=== PATIENT | male | born 1970 | race Caucasian/White ===

== ENCOUNTER 2020-10-18 12:00 | Inpatient (IN) ==
[2020-10-18 13:24] LABS: Bilirubin,Urine Small (Negative); Blood,Urine Large (Negative); Clarity,Urine Ex.Turbid (Clear); Color,Urine Orange (Yellow); Glucose,Urine (UA) Normal (Normal); Ketones,Urine Negative (Negative); Leukocyte Esterase,Urine Trace (Negative); Nitrite,Urine Negative (Negative); PH,Urine 5.5 pH Units (5.0-8.0); Protein,Urine 100 mg/dL (Neg-Trace); Specific Gravity,Urine 1.029 (1.010-1.025); WBC,Urine TNTC per hpf (0-3)
[2020-10-18 13:25] LABS: Squamous Epithelial Cell,Urine Present per hpf (None-Few); Transitional Epi Cells,Urine Present per hpf (None-Few)
[2020-10-18 13:26] LABS: Renal Epithelial Cells,Urine Present per hpf (None-Few)
[2020-10-18] MEDS ORDERED: cefTRIAXone 1,000 MG in Water for inj. (sterile) 10 ML IVP ONE (13:32)
[2020-10-18] MEDS ORDERED: Ketorolac 15 MG/ML VIAL IVP ONE (13:34)
[2020-10-18 13:55] LABS: Basophils % 0.3 %; Hematocrit 34.7 % (37.5-50.1); Hemoglobin 11.3 g/dL (12.9-16.9); Immature Granulocytes % 0.6 % (0-4); Lymphocytes # 0.8 K/mcL (0.6-4.6); Lymphocytes % 7.5 %; Mean Corpuscular HGB Conc 32.6 g/dL (31.6-35.5); Mean Corpuscular Hemoglobin 26.8 pg (28.0-33.3); Mean Corpuscular Volume 82.2 fL (83.0-100.0); Mean Platelet Volume 10.2 fL (9.4-12.4); Monocytes # 0.6 K/mcL (0.0-1.3); Monocytes % 5.9 %; Neutrophils # 8.9 K/mcL (1.6-8.9); Platelet Count 116 K/mcL (140-400); Red Blood Count 4.22 M/mcL (4.19-5.50); Red Cell Distribution Width 12.5 % (11.5-14.5); Segmented Neutrophils % 85.7 %; White Blood Count 10.4 K/mcL (4.3-11.1)
[2020-10-18 16:05] LABS: Albumin 3.5 g/dL (3.5-5.7); Albumin/Globulin Ratio 1.3 (1.1-2.2); Bilirubin,Direct 0.1 mg/dL (0.0-0.2); Bilirubin,Indirect 0.7 mg/dL (0.0-1.0); Bilirubin,Total 0.8 mg/dL (0.3-1.0); Calcium 8.5 mg/dL (8.6-10.3); Globulin 2.7 g/dL (2.4-3.5); Potassium 3.3 mEq/L (3.5-5.1); Total Protein 6.2 g/dL (6.4-8.9)
[2020-10-18] MEDS ORDERED: 0.9 % Sodium Chloride 1,000 ML IVC ONE ×2 (16:28→16:47)
[2020-10-18] MEDS ORDERED: Ondansetron 4 MG/2 ML VIAL IVP PRN (16:45)
[2020-10-18] MEDS ORDERED: Naloxone 0.4 MG/ML INJ IVP PRN (16:45)
[2020-10-18] MEDS ORDERED: *HR* OxyCODONE/APAP 5/325 TABLET PO PRN (16:47)
[2020-10-18] MEDS ORDERED: Melatonin 3 MG TABLET PO PRN (18:05)
[2020-10-18] MEDS ORDERED: traZODone 50 MG TABLET PO SCH (21:00)
[2020-10-18] MEDS: 0.9 % Sodium Chloride 1,000 ML IVC SCH (21:02)
[2020-10-18] MEDS: Acetaminophen 325 MG TABLET PO PRN (21:09)
[2020-10-18] MEDS: *HR* Heparin 5,000 UNIT/ML VIAL SQ SCH (21:10)
[2020-10-19] MEDS: Cefepime HCl 2,000 MG in Water for inj. (sterile) 20 ML IVP SCH ×3 (00:30→18:31)
[2020-10-19] MEDS: 0.9 % Sodium Chloride 1,000 ML IVC SCH (00:30)
[2020-10-19] MEDS: *HR* Heparin 5,000 UNIT/ML VIAL SQ SCH ×2 (05:25→18:30)
[2020-10-19] MEDS: Nicotine 14 MG PATCH.TD24 TD SCH ×2 (05:25→10:26)
[2020-10-19 07:07] LABS: Acinetobacter baumannii by PCR Not Detected (Not Detect); Candida albicans by PCR Not Detected (Not Detect); Candida glabrata by PCR Not Detected (Not Detect); Candida krusei by PCR Not Detected (Not Detect); Candida parapsilosis by PCR Not Detected (Not Detect); Candida tropicalis by PCR Not Detected (Not Detect); Enterobacter cloacae Cmplx PCR Not Detected (Not Detect); Enterococcus by PCR Not Detected (Not Detect); Escherichia coli by PCR DETECTED (Not Detect); Klebsiella oxytoca by PCR Not Detected (Not Detect); Klebsiella pneumoniae by PCR Not Detected (Not Detect); Proteus by PCR Not Detected (Not Detect); Pseudomonas aeruginosa by PCR Not Detected (Not Detect); Serratia marcescens by PCR Not Detected (Not Detect); Staphylococcus aureus by PCR Not Detected (Not Detect); Staphylococcus by PCR Not Detected (Not Detect); Streptococcus agalactiae(B)PCR Not Detected (Not Detect); Streptococcus by PCR Not Detected (Not Detect); Streptococcus pneumoniae PCR Not Detected (Not Detect); Streptococcus pyogenes (A) PCR Not Detected (Not Detect)
[2020-10-19 07:48] LABS: Basophils % 0.3 %; Eosinophils # 0.1 K/mcL (0.0-0.6); Eosinophils % 1.4 %; Hematocrit 33.6 % (37.5-50.1); Immature Granulocytes % 0.5 % (0-4); Lymphocytes # 0.8 K/mcL (0.6-4.6); Lymphocytes % 11.6 %; Mean Corpuscular HGB Conc 32.7 g/dL (31.6-35.5); Mean Corpuscular Hemoglobin 27.2 pg (28.0-33.3); Mean Platelet Volume 10.5 fL (9.4-12.4); Monocytes # 0.4 K/mcL (0.0-1.3); Monocytes % 6.7 %; Neutrophils # 5.1 K/mcL (1.6-8.9); Platelet Count 108 K/mcL (140-400); Red Blood Count 4.05 M/mcL (4.19-5.50); Red Cell Distribution Width 12.7 % (11.5-14.5); Segmented Neutrophils % 79.5 %; White Blood Count 6.5 K/mcL (4.3-11.1)
[2020-10-19 08:13] LABS: BUN/Creatinine Ratio 20 (6-26); Blood Urea Nitrogen 26 mg/dL (6-20); Calcium 8.6 mg/dL (8.6-10.3); Carbon Dioxide 27 mEq/L (23-29); Chloride 101 mEq/L (98-107); Glucose 122 mg/dL (70-105); Magnesium 1.8 mg/dL (1.6-2.6); Osmolality,Calculated 282 (280-300); Phosphorous 2.2 mg/dL (2.7-4.5); Potassium 3.9 mEq/L (3.5-5.1); Sodium 133 mEq/L (136-145); eGFR For African Americans > 60 (> 60); eGFR For Non-African Americans 58 (> 60)
[2020-10-19] MEDS: polyethylene glycoL 3350 17 GM POWD.PACK PO SCH (11:03)
[2020-10-19] MEDS ORDERED: Nicotine 14 MG PATCH.TD24 TD ONE (15:06)
[2020-10-19] MEDS: Acetaminophen 325 MG TABLET PO PRN (15:41)
[2020-10-19] MEDS: hydrOXYzine pamoate 25 MG CAPSULE PO SCH (19:53)
[2020-10-19] MEDS ORDERED: traZODone 50 MG TABLET PO SCH (21:00)
[2020-10-20] MEDS: Cefepime HCl 2,000 MG in Water for inj. (sterile) 20 ML IVP SCH ×2 (00:30→09:35)
[2020-10-20] MEDS: *HR* Heparin 5,000 UNIT/ML VIAL SQ SCH (05:58)
[2020-10-20] MEDS ORDERED: Naltrexone HCl 50 MG TABLET PO SCH (09:00)
[2020-10-20] MEDS: hydrOXYzine pamoate 25 MG CAPSULE PO SCH (09:37)
[2020-10-20] MEDS: Nicotine 14 MG PATCH.TD24 TD SCH (09:37)
[2020-10-20] MEDS: polyethylene glycoL 3350 17 GM POWD.PACK PO SCH (09:37)
[2020-10-20 09:48] LABS: Basophils % 0.6 %; Eosinophils # 0.2 K/mcL (0.0-0.6); Eosinophils % 3.1 %; Hemoglobin 11.5 g/dL (12.9-16.9); Immature Granulocytes % 0.4 % (0-4); Lymphocytes % 19.8 %; Mean Corpuscular HGB Conc 31.9 g/dL (31.6-35.5); Mean Corpuscular Hemoglobin 26.3 pg (28.0-33.3); Mean Corpuscular Volume 82.2 fL (83.0-100.0); Monocytes # 0.4 K/mcL (0.0-1.3); Monocytes % 8.6 %; Neutrophils # 3.2 K/mcL (1.6-8.9); Platelet Count 170 K/mcL (140-400); Red Blood Count 4.38 M/mcL (4.19-5.50); Red Cell Distribution Width 12.6 % (11.5-14.5); Segmented Neutrophils % 67.5 %; White Blood Count 4.8 K/mcL (4.3-11.1)
[2020-10-20] MEDS ORDERED: cloNIDine HCL 0.1 MG TABLET PO SCH (10:00)
[2020-10-20 10:06] LABS: BUN/Creatinine Ratio 17 (6-26); Blood Urea Nitrogen 16 mg/dL (6-20); Calcium 9.3 mg/dL (8.6-10.3); Carbon Dioxide 25 mEq/L (23-29); Chloride 102 mEq/L (98-107); Glucose 189 mg/dL (70-105); Osmolality,Calculated 286 (280-300); Potassium 3.8 mEq/L (3.5-5.1); Sodium 135 mEq/L (136-145); eGFR For African Americans > 60 (> 60); eGFR For Non-African Americans > 60 (> 60)
[2020-10-20 11:02] VITALS: BP 137/89
== END 2020-10-20 12:33 | disposition home or self-care (01) | DRG 720 ==
LOC: 2NENU 12:00 → EMEROOARM 12:00 → 2NENU 20:25 → SUATTDRO 10-19 17:02
PROVIDERS: ADMIT Internal Medicine; ATTEND Internal Medicine